=== PATIENT | female | born 1990 | race Caucasian/White ===

== ENCOUNTER 2018-04-28 06:53 | Inpatient (IN) | payer OTHER ==
[~2018-04-28] VITALS: Ht 162.6 cm; Wt 88.2 kg
[2018-04-28] VITALS (62 sets, daily range): BP systolic 99–146; BP diastolic 53–95; PULSE 65–130; TEMP 98.2–100.3
[2018-04-28] MEDS ORDERED: PRENATAL1 TA7 PO (07:34)
[2018-04-28] MEDS ORDERED: NATURAL IRON65 MG PO (07:34)
[2018-04-28] MEDS ORDERED: TUMS500 MG PO (07:34)
[2018-04-28 08:19] LABS: HEMOGLOBIN 11.5 g/dl (12.5-16.0); MEAN CELL VOLUME 98 fl (80.0-100.0); MEAN CORPUSCULAR HEMOGLOBIN 32 pg (27.0-31.0); MEAN CORPUSCULAR HGB CONC 33 g/dl (33.0-37.0); PLATELET COUNT 214 K/mm3 (130-400); REDCELL DISTRIBUTION WIDTH-CV 13.7 % (11.5-14.5)
[2018-04-28 08:20] LABS: HEMATOCRIT 35.4 % (37.0-47.0)
[2018-04-28 09:24] LABS: BAND 4 % (0-10); EOSINOPHIL 1 % (0-4); LYMPHOCYTE 23 % (20.0-51.0); NEUTROPHILS 70 % (42.0-75.2); PLATELET ESTIMATE NORMAL (NORMAL)
[2018-04-29 01:00] VITALS: BP 135/89; PULSE 90; TEMP 99.2
[2018-04-29 07:30] VITALS: BP 116/72; PULSE 78; TEMP 98.1
[2018-04-29] MEDS ORDERED: PERCOCET 325 MG1 TA2 PO (09:12)
[2018-04-29] MEDS ORDERED: IBU600 MG PO (09:12)
[2018-04-29 15:31] VITALS: BP 114/66; PULSE 78; TEMP 98.1
[2018-04-29 18:45] VITALS: BP 101/77; PULSE 74; TEMP 97.7
[2018-04-30 07:20] VITALS: BP 138/78; PULSE 88; TEMP 97.1
[2018-04-30 16:30] VITALS: BP 127/82; PULSE 82; TEMP 97.8
[2018-04-30 19:00] VITALS: BP 115/68; PULSE 78; TEMP 99.3
[2018-05-01 07:30] VITALS: BP 133/84; PULSE 82; TEMP 97.3
== END 2018-05-01 15:00 | disposition home or self-care (01) | DRG 766 ==
LOC: LDR 06:53 → OB 07:03 → LDR 07:03 → OB 04-29 00:09
PROVIDERS: Obstetrics & Gynecology
PROC: 10D00Z1 Extraction of Products of Conception, Low, Open Approach (ICD-10-PCS; principal; 2018-04-28)
DX: O76 Abnormality in fetal heart rate and rhythm complicating labor and delivery (principal); O99.02 Anemia complicating childbirth; O66.40 Failed trial of labor, unspecified; O36.63X0 Maternal care for excessive fetal growth, third trimester, not applicable or unspecified; Z37.0 Single live birth; Z3A.40 40 weeks gestation of pregnancy
CPT/HCPCS: J0690; J1580; J1885; J2270; J2405; J2590; J2704; J3010; J7120

== ENCOUNTER → 2018-05-07 | Outpatient (CLI) | payer OTHER ==
[~2018-05-07] MED LIST: IBU600 MG PO; NATURAL IRON65 MG PO; PERCOCET 325 MG1 TA2 PO; PRENATAL1 TA7 PO; TUMS500 MG PO
== END ==
LOC: LAC 15:13
DX: Z39.1 Encounter for care and examination of lactating mother (principal); Z71.89 Other specified counseling

== ENCOUNTER 2022-03-23 11:56 | Emergency (ER) | payer OTHER ==
[~2022-03-23] VITALS: Ht 162.6 cm; Wt 87.3 kg
[2022-03-23 12:01] VITALS: TEMP 97.9
[2022-03-23] MEDS ORDERED: LO LOESTRIN FE1 TAB PO (12:05)
[2022-03-23] MEDS ORDERED: ALDACTONE50 MG PO (12:05)
[2022-03-23] MEDS ORDERED: GLUCOPHAGE500 MG/TAB PO (12:05)
[2022-03-23 12:25] LABS: COLLECTION METHOD CLEAN CATCH
[2022-03-23 12:30] LABS: BASO % 0.6 % (0.0-2.0); EOS # 0.2 K/mm3 (0.0-0.7); EOS % 3.8 % (0.0-4.0); GRAN # 2.3 K/mm3 (1.4-6.5); GRAN % 45.2 % (42.2-75.2); HEMATOCRIT 38.4 % (37.0-47.0); HEMOGLOBIN 13.3 g/dl (12.5-16.0); LYMPH # 2.3 K/mm3 (1.2-3.4); LYMPH % 45.6 % (20.0-51.0); MEAN CELL VOLUME 86 fl (80.0-100.0); MEAN CORPUSCULAR HEMOGLOBIN 30 pg (27-31); MEAN CORPUSCULAR HGB CONC 35 g/dl (33.0-37.0); MEAN PLATELET VOLUME 11.3 fl (7.4-10.4); MONO # 0.2 K/mm3 (0.1-0.6); MONO % 4.6 % (1.7-9.3); PLATELET COUNT 338 K/mm3 (130-400); RED BLOOD COUNT 4.47 M/mm3 (4.10-5.30); REDCELL DISTRIBUTION WIDTH-CV 11.9 % (11.5-14.5)
[2022-03-23 12:48] LABS: BILIRUBIN,TOTAL 0.3 mg/dL (0.2-1.2); CALCIUM 9.1 mg/dL (8.4-10.2); CREATININE, serum 0.77 mg/dL (0.57-1.11); POTASSIUM 3.9 mmol/L (3.5-4.5); TOTAL PROTEIN 7.8 gm/dL (6.2-8.1)
[2022-03-23 12:52] LABS: URINE APPEARANCE Turbid (CLEAR/HAZY); URINE COLOR Red (YELLOW)
[2022-03-23 12:53] LABS: PH 7 (5-8); URINE BILIRUBIN Negative (NEGATIVE); URINE GLUCOSE 1+ (NEGATIVE); URINE KETONE Negative (NEGATIVE); URINE PROTEIN(semi-quant) 3+ (NEGATIVE)
[2022-03-23 12:54] LABS: URINE BLOOD 3+ (NEGATIVE); URINE LEUKOCYTE ESTERASE Negative (NEGATIVE); URINE NITRATE Negative (NEGATIVE); URINE UROBILINOGEN Negative (NEGATIVE)
[2022-03-23 12:58] LABS: URINE RBC 20-50 /hpf (0-2)
[2022-03-23 12:59] LABS: SQUAMOUS EPITHELIAL 0-2 /hpf (0-10)
[2022-03-23 14:34] VITALS: BP 110/62; PULSE 84
== END 2022-03-23 14:35 | disposition home or self-care (01) ==
LOC: COL.ER 11:56
PROVIDERS: Emergency Medicine
DX: N93.9 Abnormal uterine and vaginal bleeding, unspecified (principal); U07.1 COVID-19; Z73.0 Burn-out
CPT/HCPCS: J7120